=== PATIENT | male | born 1995 | race African-American/Black ===

== ENCOUNTER 2017-07-04 14:52 | Emergency (ER) | payer SELFPAY ==
[2017-07-04] MEDS ORDERED: Dexamethasone 4 mg/ml Vial ONE (16:05)
== END 2017-07-04 16:10 | disposition home or self-care (01) ==
LOC: ERS 14:52
DX: J02.9 Acute pharyngitis, unspecified (principal)
CPT/HCPCS: 87081; 87430; 99284; J1100